=== PATIENT | female | born 2000 | race Hispanic/Latino ===

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

== ENCOUNTER 2022-01-14 11:38 | Inpatient (IN) | payer MEDICAID ==
[~2022-01-14] VITALS: Ht 157.5 cm; Wt 68.0 kg
[~2022-01-14 11:38] MED LIST: PREN-154 PO
[2022-01-14] MEDS ORDERED: LACTATED RINGERS 1000ML 1,000 ML IV PRN (12:00)
[2022-01-14] MEDS ORDERED: AMPICILLIN 2GM+NS 100ML 100 ML IV SCH (12:00)
[2022-01-14] MEDS ORDERED: AMPICILLIN 1GM+NS 50ML 50 ML IV SCH (12:00)
[2022-01-14 12:27] LABS: MEAN CORPUSCULAR HEMOGLOBIN 29.8 pg (27.0-33.0); MEAN CORPUSCULAR HGB CONC 34.4 g/dL (32.0-36.0); MEAN CORPUSCULAR VOLUME 86.7 fL (80-100); RED BLOOD CELL COUNT(AUTO) 3.69 MIL/uL (4.00-5.50); RED CELL DISTRIBUTION WIDTH 12.4 % (11.0-15.5); WHITE BLOOD COUNT (AUTO) 10.2 K/uL (4.8-10.8)
[2022-01-14] MEDS ORDERED: PROMETHAZINE HCL 25 MG/ML 1ML AMPULE IM PRN (12:30)
[2022-01-14] MEDS ORDERED: MEPERIDINE-PF 50 MG/ML SYG IVP PRN (12:30)
[2022-01-14] MEDS: OXYTOCIN-LR 20 UNITS/1000 ML 1,000 ML IV SCH ×2 (12:35→16:48)
[2022-01-14] MEDS ORDERED: ACETAMINOPHEN WITH CODEINE 1 TAB TAB PO PRN (16:00)
[2022-01-14] MEDS ORDERED: LANOLIN 30GM OINTMENT TP PRN (16:00)
[2022-01-14] MEDS ORDERED: DIPH,PERTUSS(ACELL),TET VAC/PF 0.5 ML VIAL IM PRN (16:00)
[2022-01-14] MEDS ORDERED: BENZOCAINE/LANOLIN/ALOE VERA 60 ML AEROSOL TP PRN (16:00)
[2022-01-14] MEDS ORDERED: WITCH HAZEL 1 PAD TP PRN (16:00)
[2022-01-14] MEDS ORDERED: MEASLES/MUMPS/RUBELLA VACCINE, LIVE 0.5 ML/VIAL SQ PRN (16:00)
[2022-01-14 16:28] LABS: APPEARANCE,URINE Clear (CLEAR); BILIRUBIN,URINE Negative (NEGATIVE); COLOR,URINE Yellow (YELLOW); GLUCOSE, URINE (UA) Negative (NEGATIVE); KETONES,URINE Negative (NEGATIVE); LEUKOCYTE ESTERASE ,URINE Negative (NEGATIVE); NITRATE,URINE Negative (NEGATIVE); OCCULT BLOOD,URINE Negative (NEGATIVE); PROTEIN,URINE POS 1+ mg/dL (NEGATIVE); UROBILINOGEN,URINE 0.2 mg/dL (0.2-1.0)
[2022-01-14 16:41] LABS: BACTERIA,URINE None Seen /HPF (None Seen); MUCUS,URINE Few LPF (None Seen); RBC,URINE 0-1 /HPF (0-1); SQUAMOUS EPITHELIAL CELL,UR None Seen /HPF (0-2); WBC,URINE 0-1 /HPF (0-1)
[2022-01-14] MEDS: IBUPROFEN 600 MG TABLET PO PRN (17:10)
[2022-01-14 18:03] VITALS: BP 134/71
[2022-01-14 19:50] VITALS: BP 153/78
[2022-01-14] MEDS: DOCUSATE SODIUM 100 MG CAP PO SCH (20:05)
[2022-01-14] MEDS: ACETAMINOPHEN 325 MG TAB PO PRN (20:06)
[2022-01-14 20:45] VITALS: BP 147/76
[2022-01-14 23:30] VITALS: BP 123/79
[2022-01-15 03:04] VITALS: BP 118/74
[2022-01-15] MEDS: IBUPROFEN 600 MG TABLET PO PRN ×2 (06:15→14:40)
[2022-01-15 06:36] LABS: HEMATOCRIT 25.4 % (36-48); MEAN CORPUSCULAR HEMOGLOBIN 29.8 pg (27.0-33.0); MEAN CORPUSCULAR HGB CONC 33.9 g/dL (32.0-36.0); MEAN CORPUSCULAR VOLUME 87.9 fL (80-100); RED BLOOD CELL COUNT(AUTO) 2.89 MIL/uL (4.00-5.50); RED CELL DISTRIBUTION WIDTH 12.4 % (11.0-15.5); WHITE BLOOD COUNT (AUTO) 9.6 K/uL (4.8-10.8)
[2022-01-15 07:20] VITALS: BP 141/87
[2022-01-15] MEDS: DOCUSATE SODIUM 100 MG CAP PO SCH (09:35)
[2022-01-15] MEDS: ACETAMINOPHEN 325 MG TAB PO PRN (09:36)
[2022-01-15 11:13] LABS: RAPID PLASMA REAGIN NONREACTIVE (NONREACTIVE)
[2022-01-15 11:35] VITALS: BP 130/71
[2022-01-15] MEDS ORDERED: IBUP-2077 PO (14:30)
[2022-01-15] MEDS ORDERED: DOCU-116 PO (14:31)
== END 2022-01-15 15:50 | disposition home or self-care (01) | DRG 560 ==
LOC: EDH 11:38 → LDH 11:39 → WSH 17:56
PROVIDERS: ADMIT Obstetrics & Gynecology; ATTEND Obstetrics & Gynecology
PROC: 10E0XZZ Delivery of Products of Conception, External Approach (ICD-10-PCS; principal; 2022-01-14)
DX: O42.913 Preterm premature rupture of membranes, unspecified as to length of time between rupture and onset of labor, third trimester (principal); Z37.0 Single live birth; O60.14X0 Preterm labor third trimester with preterm delivery third trimester, not applicable or unspecified; Z3A.36 36 weeks gestation of pregnancy
CPT/HCPCS: 36415; 76815; 81001; 85027; 86592; 86701; 86850; 86900; 86901; 87340; 87390; 90715; A4351; G0378; J0290; J2175; J2550; J2590